=== PATIENT | female | born 1965 | race Two or more races ===

== ENCOUNTER 2021-11-24 15:32 | Emergency (ER) | payer MEDICAID ==
[~2021-11-24] VITALS: Ht 165.1 cm; Wt 86.2 kg
[2021-11-24 16:14] LABS: Basophils # (auto) 0 10 ^3/uL (0-0.2); Basophils % (auto) 0.7 % (0.0-2.0); Eosinophils # (auto) 0.1 10 ^3/uL (0-0.8); Hematocrit 46.6 % (36.0-46.0); Hemoglobin 15.3 g/dL (12.2-16.2); Lymphocytes # (auto) 1.2 10 ^3/uL (0.4-5.4); Lymphocytes % (auto) 21.2 % (10.0-50.0); Mean Corpuscular Hemoglobin 28.3 pg (28.0-32.0); Mean Corpuscular Hgb Conc. 32.7 g/dL (32.0-36.0); Mean Corpuscular Volume 86.3 fL (80.0-100.0); Monocytes # (auto) 0.3 10 ^3/uL (0-1.3); Monocytes % (auto) 5.3 % (0.0-12.0); Neutrophils # (auto) 4.2 10 ^3/uL (1.6-8.6); Neutrophils % (auto) 71.8 % (37.0-80.0); Nucleated Red Blood Cells % 0.1 %; Red Cell Distribution Width 12.8 % (11.8-14.3); White Blood Cell 5.9 10^3/uL (4.4-10.8)
[2021-11-24 16:21] LABS: Urine Bacteria NONE SEEN /hpf (None Seen); Urine Blood Negative /uL (Negative); Urine Specific Gravity 1.025 (1.001-1.035); Urine WBC 3 /hpf (0 - 5)
[2021-11-24 16:30] LABS: Albumin 3.7 g/dL (3.4-5.0); BUN/Creatinine Ratio 12.2; Calcium 9.2 mg/dL (8.5-10.1); Potassium 3.6 mmol/L (3.5-5.1)
[2021-11-24 16:33] LABS: Bilirubin, Total 0.5 mg/dL (0.2-1.0); Total Protein 7.7 g/dL (6.4-8.2)
[2021-11-24] MEDS: SODIUM CHLORIDE 0.9% 1,000 ML IV ONE (16:40)
[2021-11-24] MEDS ORDERED: METF-370 PO (16:51)
[2021-11-24] MEDS ORDERED: GLIP10TA9 PO (16:51)
[2021-11-24] MEDS ORDERED: NITR-87 PO (16:52)
[2021-11-24] MEDS ORDERED: LANC-347 XX (16:56)
[2021-11-24 17:55] VITALS: BP 154/77
== END 2021-11-24 17:56 | disposition home or self-care (01) ==
LOC: ER 15:32
DX: N39.0 Urinary tract infection, site not specified (principal); E11.65 Type 2 diabetes mellitus with hyperglycemia
CPT/HCPCS: 36415; 80053; 81001; 82010; 82962; 83036; 85025; 96360; 99283; J7030

== ENCOUNTER 2022-01-10 10:05 | Emergency (ER) | payer MEDICAID ==
[~2022-01-10] VITALS: Ht 165.1 cm; Wt 86.3 kg
[~2022-01-10 10:05] MED LIST: GLIP10TA9 PO; LANC-347 XX; METF-370 PO; NITR-87 PO
[2022-01-10 10:24] VITALS: BP 144/109
[2022-01-10] MEDS ORDERED: KETOROLAC TROMETH 60MG/2ML VIAL IM ONE (11:30)
[2022-01-10] MEDS ORDERED: METH750T22 PO (11:41)
[2022-01-10] MEDS ORDERED: IBUP800T27 PO (11:41)
== END 2022-01-10 11:47 | disposition home or self-care (01) ==
LOC: ER 10:05
DX: S29.012A Strain of muscle and tendon of back wall of thorax, initial encounter (principal); I10 Essential (primary) hypertension; E11.9 Type 2 diabetes mellitus without complications; E78.5 Hyperlipidemia, unspecified; Z90.89 Acquired absence of other organs; Z79.1 Long term (current) use of non-steroidal anti-inflammatories (NSAID); Z79.899 Other long term (current) drug therapy; X58.XXXA Exposure to other specified factors, initial encounter; Y93.89 Activity, other specified; Y92.89 Other specified places as the place of occurrence of the external cause; Y99.8 Other external cause status
CPT/HCPCS: 71046; 93005; 96372; 99283; J1885

== ENCOUNTER 2022-10-06 13:47 | Emergency (ER) | payer MEDICAID ==
[~2022-10-06] VITALS: Ht 165.1 cm; Wt 88.5 kg
[~2022-10-06 13:47] MED LIST changes: +IBUP800T27 PO; +METH750T22 PO
[2022-10-06 14:34] LABS: Basophils # (auto) 0.1 10 ^3/uL (0-0.2); Basophils % (auto) 0.9 % (0.0-2.0); Eosinophils # (auto) 0.1 10 ^3/uL (0-0.8); Eosinophils % (auto) 1.3 % (0.0-7.0); Hematocrit 40.6 % (36.0-46.0); Hemoglobin 13.7 g/dL (12.2-16.2); Lymphocytes # (auto) 1.6 10 ^3/uL (0.4-5.4); Lymphocytes % (auto) 25.2 % (10.0-50.0); Mean Corpuscular Hemoglobin 29.1 pg (28.0-32.0); Mean Corpuscular Hgb Conc. 33.8 g/dL (32.0-36.0); Monocytes # (auto) 0.4 10 ^3/uL (0-1.3); Monocytes % (auto) 6.8 % (0.0-12.0); Neutrophils # (auto) 4.1 10 ^3/uL (1.6-8.6); Neutrophils % (auto) 65.8 % (37.0-80.0); Nucleated Red Blood Cells % 0.3 %; Red Blood Cells 4.73 10^6/uL (4.0-5.20); Red Cell Distribution Width 12.8 % (11.8-14.3); White Blood Cell 6.3 10^3/uL (4.4-10.8)
[2022-10-06 14:55] LABS: Albumin 3.5 g/dL (3.4-5.0); BUN/Creatinine Ratio 21.3 (10.0-20.0); Calcium 9.4 mg/dL (8.5-10.1); Potassium 4.2 mmol/L (3.5-5.1)
[2022-10-06 14:58] LABS: Bilirubin, Total 0.4 mg/dL (0.2-1.0); Total Protein 7.7 g/dL (6.4-8.2)
[2022-10-06 16:12] LABS: Urine Bacteria NONE SEEN /hpf (None Seen); Urine Blood Negative /uL (Negative); Urine Specific Gravity 1.035 (1.001-1.035); Urine WBC 1 /hpf (0 - 5)
[2022-10-06 16:55] VITALS: BP 136/61
== END 2022-10-06 17:00 | disposition home or self-care (01) ==
LOC: ER 13:47
DX: R10.9 Unspecified abdominal pain (principal); I10 Essential (primary) hypertension; E11.9 Type 2 diabetes mellitus without complications; E78.5 Hyperlipidemia, unspecified; Z90.89 Acquired absence of other organs; Z79.1 Long term (current) use of non-steroidal anti-inflammatories (NSAID); Z79.899 Other long term (current) drug therapy
CPT/HCPCS: 36415; 74176; 80053; 81001; 83690; 85025

== ENCOUNTER 2023-06-10 07:26 | Emergency (ER) | payer MEDICAID ==
[~2023-06-10] VITALS: Ht 165.1 cm; Wt 89.1 kg
[~2023-06-10 07:26] MED LIST changes: +IBUP-1456 PO; -IBUP800T27 PO; +METH-1182 PO; -METH750T22 PO
[2023-06-10 07:44] VITALS: BP 150/95; PULSE 96; RESP 17; O2SAT 97
[2023-06-10] MEDS ORDERED: CYCL-837 PO (08:31)
[2023-06-10] MEDS ORDERED: NAPR-1334 PO (08:31)
== END 2023-06-10 08:43 | disposition home or self-care (01) ==
LOC: ER 07:26
DX: M54.41 Lumbago with sciatica, right side (principal); M47.816 Spondylosis without myelopathy or radiculopathy, lumbar region; E11.9 Type 2 diabetes mellitus without complications; E78.5 Hyperlipidemia, unspecified; I10 Essential (primary) hypertension

== ENCOUNTER 2024-04-17 06:35 | Emergency (ER) | payer MEDICAID ==
[~2024-04-17] VITALS: Ht 165.1 cm; Wt 82.5 kg
[~2024-04-17 06:35] MED LIST changes: +CYCL-837 PO; -IBUP-1456 PO; +NAPR-1335 PO
[2024-04-17 07:22] VITALS: BP 162/77; PULSE 76; TEMP 98.5
[2024-04-17 07:26] VITALS: RESP 15; O2SAT 95
[2024-04-17] MEDS ORDERED: TRAM50TA2 PO (07:33)
[2024-04-17] MEDS: KETOROLAC TROMETH 60MG/2ML VIAL IM ONE (07:35)
--- NOTE | 2024-04-17 07:42 | ED.PDOC ---
History of Present Illness HPI Comments 59-year-old female who comes in with chief complaint of lower back pain. The patient states that the pain is bilateral in nature. The patient was working at a [employer] sale for the past two days and had to sit down. She is having lower back pain that she rates as a 10/10. She has had a history of back pain in the past. There has been no other complaints at this time. The patient denies any direct trauma. She has tried some ibuprofen without relief. Chief Complaint: Back Pain Time Seen by MD: 07:24 Primary Care Provider: NONE Reviewed Notes: Nurses Notes, Medications, Allergies (No allergies to medic ations) Allergies: Coded Allergies: NO KNOWN ALLERGIES (Unverified , 11/05/13) Home Meds Active Scripts Tramadol Hcl (Tramadol Hcl) 50 Mg Tab, 50 MG PO Q8HP PRN for 7 Days, #21 TAB Prov:BLAZE CROOKS MD 04/17/24 Naproxen Sodium (Naproxen) 220 Mg Tab, 220 MG PO BID for 7 Days, #14 TAB Prov:KAREN OSORIO MD 06/10/23 Cyclobenzaprine Hcl (Cyclobenzaprine Hcl) 5 Mg Tab, 2.5 MG PO QHSP PRN for 6 Days, #3 TAB Prov:KAREN OSORIO MD 06/10/23 Methocarbamol (Methocarbamol) 750 Mg Tab, 750 MG PO QHSP PRN, #20 TAB Prov:WILVER SUAREZ 01/10/22 Lancets (Freestyle Lancets) Lancets Mis, BOX XX BID PRN, #60 Prov:BLAZE CROOKS MD 11/24/21 Nitrofurantoin Monohydrate Mac (Macrobid) 100 Mg Cap, 100 MG PO BID for 5 Days, #10 CAP Prov:BLAZE CROOKS MD 11/24/21 Glipizide (Glipizide) 10 Mg Tab, 10 MG PO QAM, #30 TAB Prov:BLAZE CROOKS MD 11/24/21 Metformin Hydrochloride (Metformin Hcl) 500 Mg Tab, 1 TAB PO BID, #60 TAB 3 Refills Prov:BLAZE CROOKS MD 11/24/21 Information Source: Patient Mode of Arrival: Ambulatory Severity: Moderate Timing: Days Duration: Since onset Prehospital treatment: None Associated signs and symptoms Low back pain Past Medical History PAST MEDICAL HISTORY: DM, High Lipids, HTN Past Medical History (Other): Chronic back pain Surgical History: Tonsillectomy 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 AND 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: No Pertinent 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 AND 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 Family History Family History: Family hx of DM, Family hx of Cancer Social History Smoker: Non-Smoker Alcohol: Denies ETOH Use Drugs: Denies Drug Use Lives In: Home Constitutional: denies: chills, diaphoresis, fatigue, fever, malaise, sweats, weakness, others EENTM: denies: blurred vision, double vision, ear bleeding, ear discharge, ear drainage, ear pain, ear ringing, eye pain, eye redness, hearing loss, mouth pain, mouth swelling, nasal discharge, nose bleeding, nose congestion, nose pain, photophobia, tearing, throat pain, throat swelling, voice changes, others Respiratory: denies: cough, hemoptysis, orthopnea, SOB at rest, shortness of breath, SOB with excertion, stridor, wheezing, others Cardiovascular: denies: chest pain, dizzy spells, diaphoresis, Dyspnea on exertion, edema, irregular heart beat, left arm pain, lightheadedness, palpitations, PND, syncope, others Gastrointestinal: denies: abdomen distended, abdominal pain, blood streaked bowels, constipated, diarrhea, dysphagia, difficulty swallowing, hematemesis, m brook, nausea, poor appetite, poor fluid intake, rectal bleeding, rectal pain, vomiting, others Genitourinary: denies: abnormal vagina bleeding, burning, dyspareunia, dysuria, flank pain, frequency, hematuria, incontinence, pain, , vagina discharge, urgency, others Neurological: denies: dizziness, fainting, headache, left sided numbness, left sided weakness, numbness, paresthesia, pre-existing deficit, right sided numbness, right sided weakness, seizure, speech problems, tingling, tremors, weakness, others Musculoskeletal: reports: back pain; denies: gout, joint pain, joint swelling, muscle pain, muscle stiffness, neck pain, others Integumetry: denies: bruises, change in color, change in hair/nails, dryness, laceration, lesions, lumps, rash, wounds, others Allergic/Immunocompromised: denies: Difficulty Healing, Frequent Infections, Hives, Itching, others Hematologic/Lymphatic: denies: anemia, blood clots, easy bleeding, easy bruising, swollen glands, others Endocrine: denies: excessive hunger, excessive sweating, excessive thirst, excessive urination, flushing, intolerance to cold, intolerance to heat, unexplained weight gain, unexplained weight loss, others Psychiatric: denies: anxiety, bipolar disorder, depression, hopeless, panic disorder, schizophrenia, sleepless, suicidal, others Physical Exam General Appearance: Mild Distress HEENT: Normal ENT Inspection, Pharynx Normal, TMs Normal Neck: Full Range of Motion, Non-Tender, Normal, Normal Inspection Respiratory: Chest Non-Tender, Lungs Clear, No Accessory Muscle Use, No Respiratory Distress, Normal Breath Sounds Cardiovascular: No Edema, No JVD, No Murmur, No Gallop, Normal Peripheral Pulses, Regular Rate/Rhythm Breast Exam: Deferred Gastrointestinal: No Organomegaly, Non Tender, No Pulsatile Mass, Normal Bowel Sounds, Soft Genitalia: Deferred Pelvic: Deferred Rectal: Deferred Extremities: No calf tenderness, Normal capillary refill, No pedal edema Musculoskeletal : Location: Bilateral Extremity Location: Back Apperance: Tenderness: Mild Neurologic: Alert, produce inspector II-XII nml as Tested, No Motor Deficits, Normal Affect, Normal Mood, No Sensory Deficits Cerebellar Function: Normal Reflexes: Normal Skin: Dry, Normal Color, Warm Lymphatic: No Adenopathy Was a procedure done? Was a procedure done?: No Differential Dx Considerations may include: Back pain, sciatica, radiculopathy X-Ray, Labs, Meds, VS Vital Signs Date Time Temp Pulse Resp B/P (MAP) Pulse Ox O2 Delivery O2 Flow Rate FiO2 04/17/24 07:26 15 95 Room Air* 0 21 04/17/24 07:22 76 16 98 Room Air 04/17/24 07:22 98.5 76 16 162/77 (105) 98 98.5 04/17/24 06:46 97.7 78 16 152/76 (101) 98 Current Medications Medications (Trade) Dose Ordered Sig/Brandan Route Start Time Stop Time Status Last Admin Ketorolac Tromethamine (Toradol Injection) 60 mg ONCE ONCE IM 04/17/24 07:30 04/17/24 07:31 DC 04/17/24 07:35 The patient was given Toradol 60 mg IM The patient was being discharged and will follow up with the primary care doctor The patient was given counseling to follow up for pain management with the primary care doctor The patient was also given a prescription of tramadol Time of 1ST Reevaluation: 07:42 Reevaluation 1ST: Improved Patient Education/Counseling: Diagnosis, Treatment, Prognosis, Need For Follow Up Family Education/Counseling: No Family Present Departure 1 Departure Time of Disposition: 07:42 Impression: Primary Impression: Lumbar radiculopathy Additional Impression: Strain of mid-back Qualified Codes: S29.012A - Strain of muscle and tendon of back wall of thorax, initial encounter Disposition: HOME / SELF CARE / HOMELESS Condition: Fair e-Prescriptions Tramadol Hcl (Tramadol Hcl) 50 Mg Tab 50 MG PO Q8HP PRN for 7 Days, #21 TAB Prov: BLAZE CROOKS MD 04/17/24 Discharged With: Self Critical Care Note Critical Care Time?: No Stability Stability form required: No Heart Score Heart Score: Heart Score Response (Comments) Value History N/A 0 EKG N/A 0 Age N/A 0 Risk Factors N/A 0 Troponin N/A 0 Total 0 BLAZE CROOKS MD Apr 17, 2024 07:42
== END 2024-04-17 07:50 | disposition home or self-care (01) ==
LOC: ER 06:35
DX: S29.012A Strain of muscle and tendon of back wall of thorax, initial encounter (principal); M54.16 Radiculopathy, lumbar region; E11.9 Type 2 diabetes mellitus without complications; G89.29 Other chronic pain; I10 Essential (primary) hypertension; Z79.84 Long term (current) use of oral hypoglycemic drugs; Z90.89 Acquired absence of other organs; X58.XXXA Exposure to other specified factors, initial encounter; Y93.89 Activity, other specified; Y92.89 Other specified places as the place of occurrence of the external cause; Y99.8 Other external cause status
CPT/HCPCS: 96372; 99283; J1885

== ENCOUNTER 2025-04-22 10:20 | Emergency (ER) | payer MEDICAID ==
[~2025-04-22] VITALS: Ht 165.1 cm; Wt 84.5 kg
[~2025-04-22 10:20] MED LIST changes: +TRAM50TA2 PO
--- NOTE | 2025-04-22 12:06 | ED.PDOC ---
Back pain HPI HPI Comments 60 y/o F, presents to the ED for CC of back pain. Patient states, she was doing laundry yesterday (04/21/25) when she began to experience sudden back pain. Patient reports, doing very repetitive movements d/t doing x7 loads of laundry. Patient denies any trauma, injury, or fall. Chief Complaint: Back Pain Time Seen by MD: 12:00 Primary Care Provider: NONE Reviewed Notes: Nurses Notes, Medications, Allergies Allergies: Coded Allergies: NO KNOWN ALLERGIES (Unverified , 11/05/13) Home Meds Active Scripts Tramadol Hcl (Tramadol Hcl) 50 Mg Tab, 50 MG PO Q8HP PRN for 7 Days, #21 TAB Prov:BLAZE CROOKS MD 04/17/24 Naproxen Sodium (Naproxen) 220 Mg Tab, 220 MG PO BID for 7 Days, #14 TAB Prov:KAREN OSORIO MD 06/10/23 Cyclobenzaprine Hcl (Cyclobenzaprine Hcl) 5 Mg Tab, 2.5 MG PO QHSP PRN for 6 Days, #3 TAB Prov:KAREN OSORIO MD 06/10/23 Methocarbamol (Methocarbamol) 750 Mg Tab, 750 MG PO QHSP PRN, #20 TAB Prov:WILVER SUAREZ 01/10/22 Lancets (Freestyle Lancets) Lancets Mis, BOX XX BID PRN, #60 Prov:BLAZE CROOKS MD 11/24/21 Nitrofurantoin Monohydrate Mac (Macrobid) 100 Mg Cap, 100 MG PO BID for 5 Days, #10 CAP Prov:BLAZE CROOKS MD 11/24/21 Glipizide (Glipizide) 10 Mg Tab, 10 MG PO QAM, #30 TAB Prov:BLAZE CROOKS MD 11/24/21 Metformin Hydrochloride (Metformin Hcl) 500 Mg Tab, 1 TAB PO BID, #60 TAB 3 Refills Prov:BLAZE CROOKS MD 11/24/21 Information Source: Patient Mode of Arrival: Ambulatory Timing: Days Duration: Since onset Location of Back pain: (B) Thoracic Severity: Moderate Prehospital treatment: None Onset: Twisting History of: None Associated signs and symptoms: None Past Medical History PAST MEDICAL HISTORY: DM, High Lipids, HTN Surgical History: Tonsillectomy STEAMFITTER History: No Pertinent STEAMFITTER History Family History Family History: Family hx of DM, Family hx of Cancer Social History Smoker: Non-Smoker Alcohol: Denies ETOH Use Drugs: Denies Drug Use Lives In: Home Constitutional: denies: chills, diaphoresis, fatigue, fever, malaise, sweats, weakness, others EENTM: denies: blurred vision, double vision, ear bleeding, ear discharge, ear drainage, ear pain, ear ringing, eye pain, eye redness, hearing loss, mouth pain, mouth swelling, nasal discharge, nose bleeding, nose congestion, nose pa in, photophobia, tearing, throat pain, throat swelling, voice changes, others Respiratory: denies: cough, hemoptysis, orthopnea, SOB at rest, shortness of breath, SOB with excertion, stridor, wheezing, others Cardiovascular: denies: chest pain, dizzy spells, diaphoresis, Dyspnea on exertion, edema, irregular heart beat, left arm pain, lightheadedness, palpitations, PND, syncope, others Gastrointestinal: denies: abdomen distended, abdominal pain, blood streaked bowels, constipated, diarrhea, dysphagia, difficulty swallowing, hematemesis, melena, nausea, poor appetite, poor fluid intake, rectal bleeding, rectal pain, vomiting, others Genitourinary: denies: abnormal vagina bleeding, burning, dyspareunia, dysuria, flank pain, frequency, hematuria, incontinence, pain, , vagina discharge, urgency, others Neurological: denies: dizziness, fainting, headache, left sided numbness, left sided weakness, numbness, paresthesia, pre-existing deficit, right sided numbness, right sided weakness, seizure, speech problems, tingling, tremors, weakness, others Musculoskeletal: reports: back pain; denies: gout, joint pain, joint swelling, muscle pain, muscle stiffness, neck pain, others Integumetry: denies: bruises, change in color, change in hair/nails, dryness, laceration, lesions, lumps, rash, wounds, others Allergic/Immunocompromised: denies: Difficulty Healing, Frequent Infections, Hives, Itching, others Hematologic/Lymphatic: denies: anemia, blood clots, easy bleeding, easy bruising, swollen glands, others Endocrine: denies: excessive hunger, excessive sweating, excessive thirst, excessive urination, flushing, intolerance to cold, intolerance to heat, unexpla ined weight gain, unexplained weight loss, others Psychiatric: denies: anxiety, bipolar disorder, depression, hopeless, panic disorder, schizophrenia, sleepless, suicidal, others All Other Systems: Reviewed and Negative Physical Exam General Appearance: No Apparent Distress, Normal HEENT: Normal ENT Inspection, Pharynx Normal Neck: Full Range of Motion, Non-Tender, Normal, Normal Inspection Respiratory: Chest Non-Tender, Lungs Clear, No Accessory Muscle Use, No Respiratory Distress, Normal Breath Sounds Cardiovascular: No Edema, No Murmur, No Gallop, Normal Peripheral Pulses, Regular Rate/Rhythm Breast Exam: Deferred Gastrointestinal: No Organomegaly, Non Tender, No Pulsatile Mass, Normal Bowel Sounds, Soft Genitalia: Deferred Pelvic: Deferred Rectal: Deferred Extremities: No calf tenderness, Normal capillary refill, Normal inspection, Normal range of motion, Non-tender, No pedal edema Musculoskeletal : Location: Bilateral Extremity Location: Back Apperance: Tenderness Neurologic: Alert, 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 Was a procedure done?: No Back Pain Differential Dx Differential Diagnosis: Musculoskeletal Pain, Strain X-Ray, Labs, Meds, VS Vital Signs Date Time Temp Pulse Resp B/P (MAP) Pulse Ox O2 Delivery O2 Flow Rate FiO2 04/22/25 11:31 Room Air* 0 21 04/22/25 11:31 97.7 88 16 175/88 (117) 96 97.7 04/22/25 10:22 97.5 81 16 145/79 98 97.5 Current Medications Medications (Trade) Dose Ordered Sig/Brandan Route Start Time Stop Time Status Last Admin Ketorolac Tromethamine (Toradol Injection) 15 mg ONCE ONCE IM 04/22/25 13:45 04/22/25 13:46 DC 04/22/25 14:05 Acetaminophen/ Hydrocodone Bitart ([place] 5/325MG Tab) 1 tab ONCE ONCE PO 04/22/25 13:45 04/22/25 13:46 DC 04/22/25 14:06 Time of 1ST Reevaluation: 12:30 Reevaluation 1ST: Unchanged Time of 2ND Reevaluation: 15:19 Reevaluation 2ND: Resolved Patient Education/Counseling: Diagnosis, Treatment, Prognosis, Need For Follow Up Family Education/Counseling: No Family Present SEPSIS Sepsis Screen Date sepsis recognized/suspect: Apr 22, 2025 Time Sepsis recognized/suspect: 1024 Recent Procedure: No On Antibiotic Therapy: No Respiratory Rate >20: No Heart Rate >90: No Temp<36 C (96.8 F) or >38.3 C: No SBP <90 or MAP <65 mmHG: No New Acute Mental Status Change: No Is the patient on CPAP, BIPAP,: No Vital Signs Date Time Temp Pulse Resp B/P (MAP) Pulse Ox O2 Delivery O2 Flow Rate FiO2 04/22/25 11:31 Room Air* 0 21 04/22/25 11:31 97.7 88 16 175/88 (117) 96 97.7 04/22/25 10:22 97.5 81 16 145/79 98 97.5 Medications Medications Dose Ordered Sig/Brandan Route Start Time Stop Time Status Last Admin Dose Admin Acetaminophen/ Hydrocodone Bitart 1 tab ONCE ONCE PO 04/22/25 13:45 04/22/25 13:46 DC 04/22/25 14:06 Ketorolac Tromethamine 15 mg ONCE ONCE IM 04/22/25 13:45 04/22/25 13:46 DC 04/22/25 14:05 Departure 1 Departure Time of Disposition: 15:20 Impression: Primary Impression: Chronic back pain Disposition: 01 HOME / SELF CARE / HOMELESS Condition: Good e-Prescriptions Ibuprofen Micronized (MOTRIN TABLET) 600 Mg Tb 600 MG PO TID PRN, #40 TAB *Black box warning-NSAIDS can increase risk of [place] & hypertension, GI irritation, ulceration, bleed, perferation. Do not use post cardiac surgery. Use short duration/lowest effective dose. Prov: BARI JEAN-BAPTISTE MD 04/22/25 Cyclobenzaprine Hcl (CYCLOBENZAPRINE HCL) 7.5 Mg Tab 7.5 MG PO Q8HP PRN for 3 Days, #9 TAB Prov: BARI JEAN-BAPTISTE MD 04/22/25 Discharged With: Self Critical Care Note Critical Care Time?: No Stability Stability form required: No Heart Score Heart Score: Heart Score Response (Comments) Value History N/A 0 EKG N/A 0 Age N/A 0 Risk Factors N/A 0 Troponin N/A 0 Total 0 I personally scribed for BARI JEAN-BAPTISTE MD ([facility] on 04/22/25 at 12:06. Electronically submitted by Shaniqua Dave ([email or web address]). I personally scribed for BARI JEAN-BAPTISTE MD ([email or web address]) on 04/22/25 at 12:09. Electronically submitted by Shaniqua Dave ([email or web address]). BARI JEAN-BAPTISTE MD Apr 22, 2025 12:06
[2025-04-22] MEDS ORDERED: KETOROLAC TROMETH 30 MG/ML 1ML VIAL ONE (14:02)
[2025-04-22] MEDS ORDERED: HYDROcodone-ACET 5/325MG TAB ONE (14:03)
[2025-04-22] MEDS: KETOROLAC TROMETH 30 MG/ML 1ML VIAL IM ONE (14:05)
[2025-04-22] MEDS: HYDROcodone-ACET 5/325MG TAB PO ONE (14:06)
[2025-04-22 15:18] VITALS: BP 154/88; PULSE 74; RESP 18; TEMP 97.9; O2SAT 98
[2025-04-22] MEDS ORDERED: IBU600T PO (15:21)
[2025-04-22] MEDS ORDERED: CYCL-838 PO (15:21)
== END 2025-04-22 15:30 | disposition home or self-care (01) ==
LOC: ER 10:20
DX: G89.29 Other chronic pain (principal); M54.9 Dorsalgia, unspecified; E11.9 Type 2 diabetes mellitus without complications; I10 Essential (primary) hypertension; Z79.899 Other long term (current) drug therapy
CPT/HCPCS: 96372; 99283; J1885